=== PATIENT | male | born 1990 | race Caucasian/White ===

== ENCOUNTER 2021-04-09 21:07 | Emergency (ER) | payer OTHER ==
[2021-04-09] MEDS ORDERED: BACITRACIN ZINC OINT 1 PACKET TOP STA (21:36)
[2021-04-09] MEDS ORDERED: BUFFERED LIDOCAINE 10 ML SYRINGE SUBQ STA (21:36)
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
[2021-04-09] MEDS ORDERED: KETOROLAC 15 MG/ML VIAL IM STA (22:38)
[2021-04-09 22:51] VITALS: BP 126/84
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
== END 2021-04-09 23:08 | disposition home or self-care (01) ==
LOC: ED 21:07
DX: S06.0X0A Concussion without loss of consciousness, initial encounter (principal); S01.311A Laceration without foreign body of right ear, initial encounter; S00.81XA Abrasion of other part of head, initial encounter; S00.511A Abrasion of lip, initial encounter; S80.212A Abrasion, left knee, initial encounter; S80.211A Abrasion, right knee, initial encounter; M25.551 Pain in right hip; V18.0XXA Pedal cycle driver injured in noncollision transport accident in nontraffic accident, initial encounter; Y93.55 Activity, bike riding; Y92.481 Parking lot as the place of occurrence of the external cause
CPT/HCPCS: 12011; 70450; 73502; 96372; 99282; 99284; A9270